=== PATIENT | female | born 1985 | race Caucasian/White ===

== ENCOUNTER 2020-02-16 22:10 | Emergency (ER) | payer OTHER, SELFPAY ==
[2020-02-16] VITALS (9 sets, daily range): BP systolic 108–129; BP diastolic 67–80; PULSE 75–82; RESP 12–22; TEMP 37.1; O2SAT 95–100; BMI 19.3
--- NOTE | 2020-02-16 22:22 | ED.ABDPAIN ---
HPI - Abdominal Pain General Chief Complaint: Abdominal Pain Stated Complaint: lwr right abdominal pain Time Seen by Provider: 02/16/20 22:15 Source: patient and family Mode of arrival: Ambulatory Limitations: no limitations History of Present Illness HPI narrative: 34-year-old female daily smoker without chronic medical problems presents with her in the chief complaint of severe right lower quadrant pain. Her pain is worse with motion or walking and improves with rest. She denies nausea, vomiting or diarrhea. She denies dysuria, frequency or urgency. She denies vaginal bleeding discharge and states her last period was 2 weeks ago. She denies any injury. She states the pain is constant and does not radiate. MD complaint: abdominal pain Onset (ago): hour(s) Pain Consistency: constant Location: RLQ Severity: moderate Quality: cramping and aching Radiation: none Relieving factors: rest Exacerbating factors: movement Associated symptoms: denies other symptoms Related Data Patient : No Previous Rx's Medication Instructions Recorded ketorolac 10 mg PO Q6H PRN #14 tab 02/17/20 ondansetron 4 mg PO TID-QID PRN #10 tab 02/17/20 Allergies Allergy/AdvReac Type Severity Reaction Status Date / Time latex [LATEX] Allergy Unknown skin Verified 02/16/20 22:59 irritation morphine AdvReac Mild ITCHING Verified 02/16/20 22:59 Review of Systems Constitutional Constitutional: Denies chills, Denies fatigue, Denies fever(s), Denies frequent falls, Denies lethargy and Denies weakness Eyes Eyes: Denies change in vision, Denies eye discharge, Denies irritation and Denies loss of vision ENT Ears, Nose, Mouth, and Throat: Denies change in voice, Denies dizziness, Denies neck pain, Denies sore throat and Denies throat swelling Cardiovascular Cardiovascular: Denies chest pain, Denies irregular heart rhythm, Denies lightheadedness, Denies palpitations, Denies dyspnea, Denies dyspnea on exertion and Denies orthopnea Respiratory Respiratory: Denies cough, Denies dyspnea, Denies dyspnea on exertion and Denies wheezing Gastrointestinal Gastrointestinal: Reports abdominal pain, Denies change in bowel habits, Denies diarrhea, Denies nausea and Denies vomiting Musculoskeletal Musculoskeletal: Denies neck pain and Denies numbness Integumentary/Breasts Skin/Breast: Denies pruritus, Denies erythema, Denies rash and Denies wounds Neurologic Neurologic: Denies behavioral changes, Denies confusion, Denies dizziness, Denies frequent falls, Denies loss of vision, Denies numbness and Denies weakness Psychiatric Psychiatric: Denies anxiety, Denies behavioral changes, Denies confusion, Denies depression, Denies homicidal ideation and Denies suicidal ideation Endocrine Endocrine: Denies fatigue, Denies flushing and Denies palpitations Hematologic/Lymphatic Hematologic/Lymphatic: Denies easy bruising Allergic/Immunologic Allergic/Immunologic: Denies urticaria, Denies throat swelling and Denies wheezing Patient History Social History Smoking Status: Current every day smoker Smoking Status: Current every day smoker alcohol intake frequency: 0-2 drinks per day Exam Narrative Exam Narrative: GENERAL: [34] year old patient appears stated age. Well-nourished, well-developed patient, in mild distress. HEAD: Atraumatic. Normocephalic. EYES: Pupils equal round and reactive. Extraocular motions intact. No scleral icterus. No injection or drainage. ENT: Nose without bleeding, purulent drainage. Throat without erythema, tonsillar hypertrophy or exudate. Airway patent. NECK: Trachea midline. Non tender CARDIOVASCULAR: Regular rate and rhythm without murmurs, gallops, or rubs. RESPIRATORY: Clear to auscultation. Breath sounds equal bilaterally. No wheezes, rales, or rhonchi. GASTROINTESTINAL: Abdomen soft, tender in the right lower quadrant, nondistended. Negative Rovsing's, heel tap EXTREMITIES: No edema or joint tenderness. BACK: Nontender without deformity or crepitance. No flank tenderness. NEURO: AOx3. SKIN: No rash or erythema of visible areas Initial Vital Signs Initial Vital Signs: Vital Signs Pulse Rate 78 02/16/20 22:33 Pulse Oximetry 99 02/16/20 22:33 Course Orders Ordered: ED Orders 02/16/20 22:46 US pelvic limited Stat 02/16/20 22:48 Basic Metabolic Panel Stat Complete Blood Count AUTO DIFF Stat Test Serum,Qual Stat 02/17/20 00:14 CT abdomen pelvis w con Stat Discontinued Medications Hydrocodone Bitart/Acetaminophen (Vicodin 5/325 Prepack) 1 bottle MISC SEEINSTR ONE Stop: 02/17/20 01:38 Last Admin: 02/17/20 01:47 Dose: 1 bottle Documented by: GLADIS Hydromorphone HCl (Dilaudid) 0.5 mg IV NOW ONE Stop: 02/16/20 22:42 Last Admin: 02/16/20 23:13 Dose: 0.5 mg Documented by: JAVIER Sodium Chloride (Normal Saline 0.9%) 1,000 mls @ 1,000 mls/hr IV BOLUS ONE Stop: 02/16/20 23:40 Last Infusion: 02/17/20 01:12 Dose: 0 mls/hr Documented by: Admin: 02/16/20 23:13 Dose: 1,000 mls/hr Documented by: JAVIER Ketorolac Tromethamine (Toradol) 15 mg IV NOW ONE Stop: 02/17/20 01:38 Last Admin: 02/17/20 01:47 Dose: 15 mg Documented by: GLADIS Ondansetron HCl (Zofran) 4 mg IV Q4HR PRN PRN Reason: Nausea And Vomiting Last Admin: 02/16/20 23:13 Dose: 4 mg Documented by: JAVIER Ondansetron HCl (Zofran Odt Prepack) 1 bottle MISC SEEINSTR ONE Stop: 02/17/20 01:38 Last Admin: 02/17/20 01:47 Dose: 1 bottle Documented by: GLADIS Vital Signs Vital signs: Vital Signs - 8 hr 02/16/20 22:33 02/16/20 22:36 02/16/20 22:45 Temperature Pulse Rate 78 79 77 Respiratory Rate 12 16 Blood Pressure 129/80 114/71 Pulse Oximetry 99 99 99 02/16/20 23:02 02/16/20 23:03 02/16/20 23:13 Temperature 98.7 F 98.7 F Pulse Rate 82 81 Respiratory Rate 16 22 Blood Pressure 114/71 Pulse Oximetry 100 98 02/16/20 23:17 02/16/20 23:30 02/16/20 23:45 Temperature Pulse Rate 77 75 77 Respiratory Rate 15 19 Blood Pressure 115/75 108/67 Pulse Oximetry 96 95 98 02/17/20 00:00 02/17/20 00:15 02/17/20 00:30 Temperature Pulse Rate 81 82 82 Respiratory Rate Blood Pressure 119/70 108/65 106/63 Pulse Oximetry 97 94 95 02/17/20 00:45 02/17/20 01:00 02/17/20 01:13 Temperature Pulse Rate 83 79 75 Respiratory Rate 18 18 19 Blood Pressure 111/67 115/71 Pulse Oximetry 97 94 96 02/17/20 01:15 02/17/20 01:30 02/17/20 01:45 Temperature Pulse Rate 75 73 85 Respiratory Rate 18 17 17 Blood Pressure 104/65 110/65 109/69 Pulse Oximetry 95 95 97 MDM - Abdominal Pain Lab Data Result diagrams: 02/16/20 22:48 02/16/20 22:48 Labs: Lab Results 02/16/20 02/16/20 02/16/20 Range/Units 22:48 22:48 22:48 WBC 9.0 (4.5-11.0) X10^3/uL RBC 4.36 (4.0-5.2) X10^6/uL Hgb 14.3 (12.0-16.0) g/dL Hct 41.7 (36-46) % MCV 95.5 (80-100) fL MCH 32.7 (26-34) PG MCHC 34.3 (30-36) % RDW 12.4 (11.6-14.8) % Plt Count 245 (150-400) X10^3/uL Neut % (Auto) 49.6 L (50-75) % Lymph % (Auto) 41.1 H (25-40) % [place] % (Auto) 5.9 (3-14) % Eos % (Auto) 2.7 (2-4) % Baso % (Auto) 0.7 (0-2) % Neut # (Auto) 4500 (9367-7873) /uL Lymph # (Auto) 3700 (5806-6630) /uL [place] # (Auto) 500 (0-900) /uL Eos # (Auto) 200 (0-450) /uL Baso # (Auto) 100 (0-100) /uL Sodium 135 L (137-145) mmol/L Potassium 4.3 (3.4-5.1) mmol/L Chloride 102 (98-107) mmol/L Carbon Dioxide 27 (22-32) mmol/L BUN 10 (7-17) mg/dL Creatinine 0.72 (0.52-1.04) mg/dL Estimated GFR > 60.0 (>60) mL/min BUN/Creatinine Ratio 13.9 (6-22) Glucose 93 (70-100) mg/dL Calcium 9.8 (8.4-10.2) mg/dL Serum , Qual Negative (Negative) Point of care testing: Point of Care Testing Test Results Negative Urine Dip Bedside Urine Glucose Negative Bedside Urine Bilirubin - Negative Bedside Urine Ketone - Negative Urine Specific [place] 1.005 Bedside Urine Occult Blood - Negative Bedside Urine pH 7.0 Bedside Urine Protein - Negative Bedside Urine Urobilinogen - Negative Bedside Urine Nitrite - Negative Bedside Urine Leukocytes - Negative Esterase Imaging Data US - abdomen: Radiologist's Impression: R ovarian cyst. No torsion CT scan - abdomen/pelvis: Radiologist's Impression: NO acute findings Discharge Plan Departure Patient Disposition: Home Clinical Impression: Ovarian cyst Qualifiers: Laterality: right Qualified Code(s): N83.201 - Unspecified ovarian cyst, right side Discharge Date/Time: 02/17/20 02:00 Instructions: DI for Ovarian Cyst Activity Restrictions/Additional Instructions: *You have been diagnosed with [right lower quadrant pain, likely from ovarian cyst] *What to do: *Take medications as directed *Follow up with your primary care provider in 2-3 days, call for an appointment. Let them know you were seen in the Emergency Department and that we ask that you be seen in follow up *Return to ER if you should have any new, worsening or concerning symptoms Prescriptions: New ketorolac 10 mg tablet 10 mg PO Q6H PRN (Reason: pain) Qty: 14 RF: 0 ondansetron 4 mg tablet,disintegrating 4 mg PO TID-QID PRN (Reason: nausea and vomiting) Qty: 10 RF: 0
--- NOTE | 2020-02-16 22:46 | DI.US.S_ITS ---
PROCEDURE: US PELVIC LIMITED INDICATIONS: SEVERE RLQ PAIN, POSSIBLE TORSION TECHNIQUE: Real-time transabdominal scanning was performed of the pelvic organs, with image documentation. COMPARISON: None. FINDINGS: Uterus: Uterus is normal in size at 10.7 x 4.9 x 5.6 cm. Endometrium measures 15 mm in combined thickness. Ovaries: Right ovary measures 4.4 x 2.7 x 1.9 centimeters. Two small cysts noted in the right ovary measuring 1.1 centimeter and 0.9 centimeters in diameter. Left ovary measures 2.6 x 1.6 x 1.9 centimeters. Left ovary is sonographically normal. Doppler evaluation demonstrates normal arterial and venous flow in the ovaries bilaterally. Other: No free pelvic fluid. Limited scanning through the kidneys shows no hydronephrosis. IMPRESSION: No evidence of ovarian torsion. Please note ultrasound cannot exclude intermittent torsion. Dictated by: Yelitza Ruiz MD, PhD on 02/17/2020 at 7:27 Approved by: Yleitza Ruiz MD, PhD on 02/17/2020 at 7:31
[2020-02-16 22:59] LABS: Add Manual Diff / Slide Review NO; Basophils Absolute Auto 100 /uL (0-100); Basophils Percent Auto 0.7 % (0-2); Eosinophils Absolute Auto 200 /uL (0-450); Eosinophils Percent Auto 2.7 % (2-4); Hematocrit 41.7 % (36-46); Hemoglobin 14.3 g/dL (12.0-16.0); Lymphocytes Absolute Auto 3700 /uL (1100-4500); Lymphocytes Percent Auto 41.1 % (25-40); Mean Corpuscular HGB Conc 34.3 % (30-36); Mean Corpuscular Hemoglobin 32.7 PG (26-34); Mean Corpuscular Volume 95.5 fL (80-100); Monocytes Absolute Auto 500 /uL (0-900); Monocytes Percent Auto 5.9 % (3-14); Neutrophils Absolute Auto 4500 /uL (1500-7000); Neutrophils Percent Auto 49.6 % (50-75); Platelet Count 245 X10^3/uL (150-400); Red Blood Cell Count 4.36 X10^6/uL (4.0-5.2); Red Cell Distribution Width 12.4 % (11.6-14.8)
[2020-02-16 23:13] LABS: BUN Creatinine Ratio 13.9 (6-22); Blood Urea Nitrogen 10 mg/dL (7-17); Calcium 9.8 mg/dL (8.4-10.2); Carbon Dioxide 27 mmol/L (22-32); Chloride 102 mmol/L (98-107); Estimated Glomerular Filt Rate > 60.0 mL/min (>60); Glucose 93 mg/dL (70-100); HEMOLYSIS 32 (0-50); Potassium 4.3 mmol/L (3.4-5.1); Sodium 135 mmol/L (137-145)
[2020-02-16] MEDS: ONDANSETRON 4 MG/2 ML INJ IV (23:13)
[2020-02-16] MEDS: SODIUM CHLORIDE 0.9% 1,000 ML 1000 ML IV (23:13)
[2020-02-16] MEDS: HYDROMORPHONE 0.5 MG INJ IV (23:13)
[2020-02-16 23:22] LABS: Pregnancy Test Serum,Qual Negative (Negative)
[2020-02-17] VITALS (9 sets, daily range): BP systolic 104–119; BP diastolic 63–71; PULSE 73–85; RESP 17–19; O2SAT 94–97
--- NOTE | 2020-02-17 00:14 | DI.CT.S_ITS ---
PROCEDURE: CT ABDOMEN PELVIS W CON INDICATIONS: severe Right lower quadrant pain TECHNIQUE: After the administration of intravenous contrast, 5 mm thick sections acquired from the diaphragm to the symphysis. 5 mm coronal and sagittal reformats were acquired. For radiation dose reduction, the following was used: automated exposure control, adjustment of mA and/or kV according to patient size. COMPARISON: None. FINDINGS: Image quality: Excellent. ABDOMEN: Lung bases: Lung bases are clear. Heart size is normal. Solid organs: Liver is normal in size and enhancement. Gallbladder is within normal limits. Biliary system is non dilated. Pancreas enhances normally. Spleen is normal in size and enhancement. No adrenal nodules. Kidneys demonstrate normal size and enhancement, without hydronephrosis. Peritoneum and bowel: Bowel loops demonstrate normal wall thickness and caliber. No free fluid or air. Appendix is visualized and is within normal limits. Mild fecal stasis in the colon is seen. Nodes and vessels: No retroperitoneal or mesenteric adenopathy by size criteria. Aorta and inferior vena cava are normal in size. Miscellaneous: No ventral hernias. PELVIS: Genitourinary: Bladder wall thickness is normal. Miscellaneous: No inguinal hernias or adenopathy. Fluid is noted within endometrium. No gross abnormality is seen in bilateral adnexa. Bones: No suspicious bony lesions. No vertebral body compression fractures. IMPRESSION: 1. Normal appendix. No bowel obstruction. No abnormal bowel wall thickening. No free fluid or free air. 2. No renal stone or hydronephrosis. No discrepancies from preliminary report. Dictated by: Rolf Mary M.D. on 02/17/2020 at 8:28 Approved by: Rolf Mary M.D. on 02/17/2020 at 8:30
[2020-02-17] MEDS: HYDROCODONE/ACET 5/325 PREPACK 1 BOTTLE MISC (01:47)
[2020-02-17] MEDS: ONDANSETRON 4 MG ODT PREPACK 1 BOTTLE MISC (01:47)
[2020-02-17] MEDS: KETOROLAC 60 MG/2 ML VIAL 15 MG IV (01:47)
== END 2020-02-17 02:00 | disposition home or self-care (01) ==
PROVIDERS: Emergency Provider Emergency Medicine
DX: N83.201 Unspecified ovarian cyst, right side (principal)
CPT/HCPCS: 36415; 74177; 76830; 76857; 80048; 81003; 81025; 84703; 85025; 96361; 96374; 96375; 99284; J1170; J1885; J2405; Q9967

== ENCOUNTER 2022-10-08 16:23 | Emergency (ER) | payer OTHER, SELFPAY ==
[2022-10-08 16:27] VITALS: BP 130/83; PULSE 94; RESP 18; TEMP 36.6; O2SAT 98; BMI 18.8
--- NOTE | 2022-10-08 16:32 | DI.RAD.S_ITS ---
PROCEDURE: XR HAND RT MIN 3V INDICATIONS: smashed hand/R middle finger between two bricks TECHNIQUE: 3 views of the hand(s) acquired. COMPARISON: None. FINDINGS: Bones: There is a nondisplaced fracture at the base of the 3rd distal phalanx. Carpal bones are normally aligned. No suspicious bony lesions. Soft tissues: No suspicious soft tissue calcifications. IMPRESSION: Nondisplaced 3rd distal phalangeal base fracture. Dictated by: Castro Bowling M.D. on 10/08/2022 at 16:57 Approved by: Castro Bowling M.D. on 10/08/2022 at 16:58
--- NOTE | 2022-10-08 17:06 | ED.UPPEXIN ---
HPI - Extremity Injury (Upper) <YAAKOV Mcdaniel - Last Filed: 10/08/22 18:51> General Chief Complaint: Extremity Injury, Upper Stated Complaint: rt middle ringer injury Time Seen by Provider: 10/08/22 16:59 Source: patient Mode of arrival: Ambulatory History of Present Illness HPI narrative: This is a 36-year-old female presents to the emergency department complaining of a injury to her right 3rd digit that happened just prior to arrival. She states that it was smashed between 2 bricks proximally 8-10 lb. She does not remember when her last tetanus was, denies any numbness or tingling, she has artificial nails, states that she is allergic to latex, morphine. Denies range of motion changes or deficit. She is able to flex and extend her finger without difficulty. Related Data Previous Rx's Medication Instructions Recorded ketorolac 10 mg tablet 10 mg PO Q6H PRN pain #14 tabs 02/17/20 ondansetron 4 mg disintegrating 4 mg PO TID-QID PRN nausea and 02/17/20 tablet vomiting #10 tabs Allergies Allergy/AdvReac Type Severity Reaction Status Date / Time latex [LATEX] Allergy Unknown skin Verified 02/16/20 22:59 irritation morphine AdvReac Mild ITCHING Verified 02/16/20 22:59 Review of Systems <YAAKOV Mcdaniel - Last Filed: 10/08/22 18:51> Review of Systems ROS Unobtainable: All systems reviewed & are unremarkable except as noted in HPI and below Patient History <YAAKOV Mcdaniel - Last Filed: 10/08/22 18:51> Social History Smoking Status: Current every day smoker Smoking Status: Current every day smoker tobacco type: cigarettes alcohol intake frequency: 0-2 drinks per day Substance Use Type: marijuana Exam <YAAKOV Mcdaniel - Last Filed: 10/08/22 18:51> Narrative Exam Narrative: Reviewed vitals signs and nursing notes. General: cooperative, in no acute distress, well groomed MSK: moves all extremities, neurovascularly intact, no weakness, normal tone Skin: brisk capillary refill, without rash, abrasion/blunt injury to the lateral aspect of the 3rd digit right hand fingernail. Removing nail Surinamese with nail Surinamese remover and will perform digital block to remove the artificial nail to evaluate the nail bed, brisk cap refill and no sensation deficit at this time, unable to evaluate for subungual hematoma until nail Surinamese is removed. Update: Patient's sample shows removed, there is no evidence of subungual hematoma or nail bed injury or laceration related to the nail bed. She has ecchymosis proximal to the D IP, tenderness over this area and some tenderness over the D IP joint. Normal flexion extension of her finger and isolated it at each joint. No vascular or tendon injury Initial Vital Signs Initial Vital Signs: Vital Signs Temperature 97.8 F 10/08/22 16:27 Pulse Rate 94 H 10/08/22 16:27 Respiratory Rate 18 10/08/22 16:27 Blood Pressure 130/83 10/08/22 16:27 Pulse Oximetry 98 10/08/22 16:27 Oxygen Delivery Method Room Air 10/08/22 16:27 <Mary Ann Christy DO - Last Filed: 10/10/22 14:17> Initial Vital Signs Initial Vital Signs: Vital Signs Temperature 97.8 F 10/08/22 16:27 Pulse Rate 94 H 10/08/22 16:27 Respiratory Rate 18 10/08/22 16:27 Blood Pressure 130/83 10/08/22 16:27 Pulse Oximetry 98 10/08/22 16:27 Oxygen Delivery Method Room Air 10/08/22 16:27 Procedures <YAAKOV Mcdaniel - Last Filed: 10/08/22 18:51> Orthopedic Splinting/Casting Injury #1: Side: right Upper Extremity Injury Location: finger Upper Extremity Immobilizer: aluminum form splint and finger (other) Post splinting neuro exam: intact and no change Post splinting vascular exam: no change Placed by: Provider Additional Comments: Bacitracin and Telfa applied, finger splinted in extension with a metal finger splint, this was wrapped with Coban and patient tolerated well, patient remains having a brisk cap refill without significant tenderness, weakness, or sensation changes Course <YAAKOV Mcdaniel - Last Filed: 10/08/22 18:51> Orders Ordered: Discontinued Medications Bacitracin (Bacitracin Oint 0.9 Gm Pckt) 1 applic TOP NOW ONE Stop: 10/08/22 17:01 Last Admin: 10/08/22 17:17 Dose: 1 applic Documented By: CTS Diphtheria/Tetanus/Acell Pertussis (Tet,Diph,Pertuss(Acell),Vac/Pf 0.5 Ml Syringe) 0.5 ml IM .ONCE ONE Stop: 10/08/22 17:01 Last Admin: 10/08/22 17:17 Dose: 0.5 ml Documented By: CTS Ketorolac Tromethamine (Ketorolac 10 Mg Tablet) 10 mg PO NOW ONE Stop: 10/08/22 17:01 Last Admin: 10/08/22 17:17 Dose: 10 mg Documented By: CTS Lidocaine HCl (Lidocaine 2% Inj Sdv 5ml) 5 ml INJ INTRA-OP ONE Stop: 10/08/22 17:06 Last Admin: 10/08/22 18:04 Dose: Not Given Documented By: CTS Vital Signs Vital signs: Vital Signs - 8 hr 10/08/22 16:27 Temperature 97.8 F Pulse Rate 94 H Respiratory Rate 18 Blood Pressure 130/83 Pulse Oximetry 98 Oxygen Delivery Method Room Air <Mary Ann Christy, - Last Filed: 10/10/22 14:17> Orders Ordered: Discontinued Medications Bacitracin (Bacitracin Oint 0.9 Gm Pckt) 1 applic TOP NOW ONE Stop: 10/08/22 17:01 Last Admin: 10/08/22 17:17 Dose: 1 applic Documented By: CTS Diphtheria/Tetanus/Acell Pertussis (Tet,Diph,Pertuss(Acell),Vac/Pf 0.5 Ml Syringe) 0.5 ml IM .ONCE ONE Stop: 10/08/22 17:01 Last Admin: 10/08/22 17:17 Dose: 0.5 ml Documented By: CTS Ketorolac Tromethamine (Ketorolac 10 Mg Tablet) 10 mg PO NOW ONE Stop: 10/08/22 17:01 Last Admin: 10/08/22 17:17 Dose: 10 mg Documented By: CTS Lidocaine HCl (Lidocaine 2% Inj Sdv 5ml) 5 ml INJ INTRA-OP ONE Stop: 10/08/22 17:06 Last Admin: 10/08/22 18:04 Dose: Not Given Documented By: CTS Vital Signs Vital signs: Vital Signs - 8 hr 10/08/22 16:27 Temperature 97.8 F Pulse Rate 94 H Respiratory Rate 18 Blood Pressure 130/83 Pulse Oximetry 98 Oxygen Delivery Method Room Air [facility] - Extremity Injury (Upper) <YAAKOV Mcdaniel - Last Filed: 10/08/22 18:51> Imaging Data Extremity x-ray #1: Radiologist's Impression: PROCEDURE:? XR HAND RT MIN 3V ? INDICATIONS:? smashed hand/R middle finger between two bricks ? TECHNIQUE:? 3 views of the hand(s) acquired.? ? COMPARISON:? None. ? FINDINGS:? ? Bones:? There is a nondisplaced fracture at the base of the 3rd distal phalanx.? Carpal bones are normally aligned.? No suspicious bony lesions.? ? Soft tissues:? No suspicious soft tissue calcifications.? ? ? IMPRESSION:? Nondisplaced 3rd distal phalangeal base fracture. ? ? Dictated by: Castro Bowling M.D. on 10/08/2022 at 16:57 ? ? Approved by: Castro Bowling M.D. on 10/08/2022 at 16:58 ? [facility] Narrative Medical decision making narrative: Chief Complaint: Finger pain and injury Independent historian: Patient Differential diagnoses include but are not limited to: Subungual hematoma, nail bed laceration, fracture, tendon injury, vascular injury, compartment syndrome, laceration/abrasion/contusion I have independently reviewed the patient's vital signs and nursing notes as well as prior records if available. Pertinent Imaging reviewed: X-ray of the right hand 3rd digit shows nondisplaced 3rd distal phalangeal base fracture. Patient's tetanus was updated today, pain control with Toradol was provided, nail Surinamese was removed showing no nailbed injury, subungual hematoma, or injury suspected involved with the fingernail. Finger was splinted in extension, wound was cleansed with normal saline, covered with bacitracin, there is no bleeding, no suture repair was indicated. Encourage patient to return emergency department for new or worsening symptoms, treat her pain with Tylenol and ibuprofen, return for pain out proportion, range of motion changes or numbness and tingling. Social considerations that may affect disposition: none Questions are addressed and there is agreement with the plan and for follow-up. Patient is appropriate for outpatient management. MIPS: This encounter doesn't have any diagnosis' associated with MIPS criteria. Discharge Plan Departure Patient Disposition: Home Clinical Impression: Avulsion fracture of distal phalanx of finger Qualifiers: Encounter type: initial encounter Fracture type: closed Qualified Code(s): S62.639A - Displaced fracture of distal phalanx of unspecified finger, initial encounter for closed fracture Instructions: DI for Finger Fracture Activity Restrictions/Additional Instructions: *You have been diagnosed with a fracture of the fingertip bone in your 3rd finger called a tuft. Please immobilize this distal joint with a Band-Aid at least for the next few weeks to prevent worsening injury. There does not appear to be any fingernail or nail bed injury which is good news. Please come back if you numbness, tingling, worsening pain or other change. Please follow-up with your primary care provider as needed, use ibuprofen 600 mg with 650 mg Tylenol every 6 hours, keep this elevated as much as possible, ice may be helpful but the pain should start to subside. If it is worsening, evaluate the fingernail to see if there is blood underneath, come back in for that or treated at home as we discussed. Please apply topical antibiotic ointment and keep the wound covered with at least a Band-Aid. *What to do: *Please continue to take your regular medications as directed. [ ] New medication prescriptions sent to your pharmacy: [ ] [ ] New medication written as a paper prescription [x ] No new medications given *Please follow up with your primary care provider in 2-3 days, call for an appointment. Let them know you were seen in the Emergency Department and that we asked that you be seen for follow-up. We will electronically transmit a record of today's note if your PCP is in our system *If you do not have a primary care provider please contact [phone] to establish care with one of the [facility] primary care providers. *Return to Emergency Department if you should have any new, worsening, or concerning symptoms, such as [fever greater than 101F, chills, worsening pain, persistent vomiting or other bothersome symptoms]. Prescriptions: No Action ketorolac 10 mg tablet 10 mg PO Q6H PRN (Reason: pain) Qty: 14 0RF ondansetron 4 mg tablet,disintegrating 4 mg PO TID-QID PRN (Reason: nausea and vomiting) Qty: 10 0RF Referrals: Etelvina Junior ARNP [Primary Care Provider] - Stand Alone Forms: Patient Portal/API <Mary Ann Christy DO - Last Filed: 10/10/22 14:17> Cosign ED Attending Cosignature Attestation: I was immediately available in the department for consultation. Documentation has been reviewed.
[2022-10-08] MEDS: BACITRACIN OINT 0.9 GM PCKT 1 APPLIC TOP (17:17)
[2022-10-08] MEDS: KETOROLAC 10 MG TABLET PO (17:17)
[2022-10-08] MEDS: TET,DIPH,PERTUSS(ACELL),VAC/PF 0.5 ML SYRINGE IM (17:17)
== END 2022-10-08 18:10 | disposition home or self-care (01) ==
PROVIDERS: Emergency Provider Nurse Practitioner Critical Care Medicine; PCP Nurse Practitioner Family
DX: S62.632A Displaced fracture of distal phalanx of right middle finger, initial encounter for closed fracture (principal); W23.0XXA Caught, crushed, jammed, or pinched between moving objects, initial encounter; Z23 Encounter for immunization
CPT/HCPCS: 29130; 73130; 90471; 99283; 99284; 90715

== ENCOUNTER 2023-09-26 11:00 | Emergency (ER) | payer OTHER, SELFPAY ==
[2023-09-26 11:09] VITALS: BP 122/64; PULSE 89; RESP 18; O2SAT 99
--- NOTE | 2023-09-26 11:14 | ED_ITS ---
HPI - Fever <Diana De La Torre PA-C - Last Filed: 09/26/23 16:03> General Chief Complaint: Fever Stated Complaint: ryan catalanney infection, fever/pain/nausea Time Seen by Provider: 09/26/23 11:04 History of Present Illness HPI Narrative: Patient is a 37-year-old female presenting for evaluation of right flank pain beginning 3 days ago. She states that yesterday it radiated around to her right anterior flank. She presented to the emergency department this morning because the pain seems to be getting worse and she noticed burning with urination this morning as well as a fever of 101 F. She states that her symptoms of pain are improved with Motrin and Tylenol. 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 She notes the pain seems to have worsened over the last 3 days moving remaining in her right posterior flank and starting to radiate around to her right abdomen. She denies any previous abdominal surgery. She states she is not taking any control, but her has had a vasectomy 11 years ago. She reports that she can not remember having had a UTI in the past nor kidney stones. She endorses some nausea this morning but denies vomiting. She states that this time it is not significantly bothering her. She describes the pain as dull and with anterior pressure on her stomach, notes that it seems to ?poke into her back?. She reports her last menstrual period began September 11. She reports regular bowel movements with her most recent 1 occurring yesterday. She denies diarrhea, nasal congestion cough abnormal vaginal discharge or bleeding. She reports daily smoking. She reports chronic condition of depression and states she takes medication to treat depression. She reports she last took 200 mg of Motrin at 9a and 500 mg of Tylenol at 9a. Related Data Previous Rx's Medication Instructions Recorded ketorolac 10 mg tablet 10 mg PO Q6H PRN pain #14 tabs 02/17/20 ondansetron 4 mg disintegrating 4 mg PO TID-QID PRN nausea and 02/17/20 tablet vomiting #10 tabs cephalexin 500 mg capsule 500 mg PO BID 5 days #10 caps 09/26/23 Allergies Allergy/AdvReac Type Severity Reaction Status Date / Time latex [LATEX] Allergy Unknown skin Verified 09/26/23 11:49 irritation morphine AdvReac Mild ITCHING Verified 09/26/23 11:49 Review of Systems <Diana De La Torre PA-C - Last Filed: 09/26/23 16:03> Review of Systems Narrative: see HPI Patient History <Diana De La Torre PA-C - Last Filed: 09/26/23 16:03> Social History Smoking Status: Current every day smoker Smoking Status: Current every day smoker tobacco type: cigarettes alcohol intake frequency: 0-2 drinks per day Substance Use Type: marijuana Exam <Diana De La Torre PA-C - Last Filed: 09/26/23 16:03> Narrative Exam Narrative: GENERAL: 37 year old patient appears stated age. Well-developed patient, in no acute distress. HEAD: Atraumatic. Normocephalic. EYES: Pupils equal round CARDIOVASCULAR: Regular rate and rhythm without murmurs, gallops, or rubs. RESPIRATORY: Clear to auscultation. Breath sounds equal bilaterally. No wheezes, rales, or rhonchi. GASTROINTESTINAL: Bowel sounds present x4, tympanic to percussion in all 4 quadrants, Abdomen soft, nondistended. Patient has tenderness in right side mid-abdomen, tender to palpation of suprapubic area, no significant tenderness with the right lower quadrant, no tenderness with obturator sign, no worsening tenderness with Sabillon's, no hepatosplenomegaly noted. Positive right-sided CVA tenderness present BACK: Right flank tenderness present NEURO: AOx3. SKIN: No rash or erythema of visible areas Initial Vital Signs Initial Vital Signs: Vital Signs Pulse Rate 89 09/26/23 11:09 Respiratory Rate 18 09/26/23 11:09 Blood Pressure 122/64 09/26/23 11:09 Pulse Oximetry 99 09/26/23 11:09 Oxygen Delivery Method Room Air 09/26/23 11:09 <Jada Morillo MD - Last Filed: 09/26/23 19:07> Initial Vital Signs Initial Vital Signs: Vital Signs Pulse Rate 89 09/26/23 11:09 Respiratory Rate 18 09/26/23 11:09 Blood Pressure 122/64 09/26/23 11:09 Pulse Oximetry 99 09/26/23 11:09 Oxygen Delivery Method Room Air 09/26/23 11:09 Course <Diana De La Torre PA-C - Last Filed: 09/26/23 16:03> Orders Ordered: ED Orders 09/26/23 11:51 CT kidney ureter bladder (KUB) Stat 09/26/23 12:05 CBC Auto Diff [Complete Blood Count AUTO DIFF] Stat CMP [Comprehensive Metabolic Panel] Stat Lipase Stat Discontinued Medications Acetaminophen (Acetaminophen 325 Mg Tablet) 650 mg PO NOW ONE Stop: 09/26/23 13:01 Last Admin: 09/26/23 12:56 Dose: 650 mg Documented By: KARIN Sodium Chloride (Normal Saline 0.9%) 1,000 mls @ 1,000 mls/hr IV BOLUS ONE Stop: 09/26/23 12:58 Last Infusion: 09/26/23 13:11 Dose: Infused Documented By: Admin: 09/26/23 12:10 Dose: 1,000 mls/hr Documented By: KARIN Sodium Chloride (Normal Saline 0.9%) 500 mls @ 1,000 mls/hr IV BOLUS ONE Stop: 09/26/23 12:28 Last Admin: 09/26/23 12:10 Dose: Not Given Documented By: RB Ibuprofen (Ibuprofen 400 Mg Tablet) 400 mg PO NOW ONE Stop: 09/26/23 13:01 Ketorolac Tromethamine (Ketorolac 30 Mg/Ml Vial) 15 mg IV NOW ONE Stop: 09/26/23 13:01 Last Admin: 09/26/23 12:57 Dose: 15 mg Documented By: KARIN Ondansetron HCl (Ondansetron 4 Mg Odt) 4 mg SL NOW PRN PRN Reason: Nausea And Vomiting Ondansetron HCl (Ondansetron 4 Mg/2 Ml Inj) 4 mg IV NOW PRN PRN Reason: Nausea And Vomiting Last Admin: 09/26/23 12:56 Dose: 4 mg Documented By: KARIN Vital Signs Vital signs: Vital Signs - 8 hr 09/26/23 11:09 09/26/23 11:09 09/26/23 11:16 Temperature 98.4 F Pulse Rate 89 92 H Respiratory Rate 18 18 Blood Pressure 122/64 122/64 Pulse Oximetry 99 99 Oxygen Delivery Method Room Air Room Air 09/26/23 12:05 09/26/23 12:05 09/26/23 12:29 Temperature Pulse Rate 85 87 Respiratory Rate 18 20 Blood Pressure 119/58 L Pulse Oximetry 96 98 Oxygen Delivery Method 09/26/23 12:29 09/26/23 12:30 09/26/23 12:30 Temperature Pulse Rate 81 Respiratory Rate Blood Pressure 123/74 106/66 Pulse Oximetry 99 Oxygen Delivery Method Room Air <Jada Morillo MD - Last Filed: 09/26/23 19:07> Orders Ordered: ED Orders 09/26/23 11:51 CT kidney ureter bladder (KUB) Stat 09/26/23 12:05 CBC Auto Diff [Complete Blood Count AUTO DIFF] Stat CMP [Comprehensive Metabolic Panel] Stat Lipase Stat Discontinued Medications Acetaminophen (Acetaminophen 325 Mg Tablet) 650 mg PO NOW ONE Stop: 09/26/23 13:01 Last Admin: 09/26/23 12:56 Dose: 650 mg Documented By: KARIN Sodium Chloride (Normal Saline 0.9%) 1,000 mls @ 1,000 mls/hr IV BOLUS ONE Stop: 09/26/23 12:58 Last Infusion: 09/26/23 13:11 Dose: Infused Documented By: Admin: 09/26/23 12:10 Dose: 1,000 mls/hr Documented By: KARIN Sodium Chloride (Normal Saline 0.9%) 500 mls @ 1,000 mls/hr IV BOLUS ONE Stop: 09/26/23 12:28 Last Admin: 09/26/23 12:10 Dose: Not Given Documented By: SARA Ibuprofen (Ibuprofen 400 Mg Tablet) 400 mg PO NOW ONE Stop: 09/26/23 13:01 Ketorolac Tromethamine (Ketorolac 30 Mg/Ml Vial) 15 mg IV NOW ONE Stop: 09/26/23 13:01 Last Admin: 09/26/23 12:57 Dose: 15 mg Documented By: KARIN Ondansetron HCl (Ondansetron 4 Mg Odt) 4 mg SL NOW PRN PRN Reason: Nausea And Vomiting Ondansetron HCl (Ondansetron 4 Mg/2 Ml Inj) 4 mg IV NOW PRN PRN Reason: Nausea And Vomiting Last Admin: 09/26/23 12:56 Dose: 4 mg Documented By: KARIN Vital Signs Vital signs: Vital Signs - 8 hr 09/26/23 11:09 09/26/23 11:09 09/26/23 11:16 Temperature 98.4 F Pulse Rate 89 92 H Respiratory Rate 18 18 Blood Pressure 122/64 122/64 Pulse Oximetry 99 99 Oxygen Delivery Method Room Air Room Air 09/26/23 12:05 09/26/23 12:05 09/26/23 12:29 Temperature Pulse Rate 85 87 Respiratory Rate 18 20 Blood Pressure 119/58 L Pulse Oximetry 96 98 Oxygen Delivery Method 09/26/23 12:29 09/26/23 12:30 09/26/23 12:30 Temperature Pulse Rate 81 Respiratory Rate Blood Pressure 123/74 106/66 Pulse Oximetry 99 Oxygen Delivery Method Room Air MDM - Fever <Diana De La Torre PA-C - Last Filed: 09/26/23 16:03> Lab Data 09/26/23 12:05 09/26/23 12:05 Labs: Lab Results 09/26/23 Range/Units 12:05 WBC 8.9 (4.5-11.0) X10^3/uL RBC 4.06 (4.0-5.2) X10^6/uL Hgb 13.3 (12.0-16.0) g/dL Hct 39.2 (36-46) % MCV 96.6 (80-100) fL MCH 32.8 (26-34) PG MCHC 34.0 (30-36) % RDW 13.8 (11.6-14.8) % Plt Count 246 (150-400) X10^3/uL Neut % (Auto) 75.0 (50-75) % Lymph % (Auto) 15.0 L (25-40) % [place] % (Auto) 9.0 (3-14) % Eos % (Auto) 0.6 L (2-4) % Baso % (Auto) 0.4 (0-2) % Neut # (Auto) 6600 (0361-7956) /uL Lymph # (Auto) 1300 (8489-7582) /uL [place] # (Auto) 800 (0-900) /uL Eos # (Auto) 0 (0-450) /uL Baso # (Auto) 0 (0-100) /uL Sodium 138 (137-145) mmol/L Potassium 4.1 (3.4-5.1) mmol/L Chloride 103 (98-107) mmol/L Carbon Dioxide 27 (22-32) mmol/L BUN 5 L (7-17) mg/dL Creatinine 0.53 (0.52-1.04) mg/dL Estimated GFR > 60 (>60) mL/min BUN/Creatinine Ratio 9.4 (6-22) Glucose 72 (70-100) mg/dL Calcium 9.3 (8.4-10.2) mg/dL Total Bilirubin 0.7 (0.2-1.3) mg/dL AST 22 (14-36) IU/L ALT 17 (<35) IU/L Alkaline Phosphatase 54 (38-126) U/L Total Protein 7.4 (6.3-8.2) g/dL Albumin 4.4 (3.5-5.0) g/dL Globulin 3.0 (1.7-4.1) g/dL Albumin/Globulin Ratio 1.5 (1.0-2.8) Lipase 55 (23-300) U/L Point of Care Testing Test Results Negative Urine Dip Bedside Urine Glucose Negative Bedside Urine Bilirubin - Negative Bedside Urine Ketone - Negative Urine Specific [place] 1.010 Bedside Urine Occult Blood - Negative Bedside Urine pH 6.0 Bedside Urine Protein - Negative Bedside Urine Urobilinogen - Negative Bedside Urine Nitrite - Negative Bedside Urine Leukocytes +/- 15 Esterase MDM Narrative Medical decision making narrative: Patient is a 37-year-old female presenting for evaluation of 3 days of right back pain with radiation to right flank. On exam, she has tenderness right side mid-abdomen with no increased tenderness with Sabillon sign, and some suprapubic tenderness. test is negative. UA shows presence of some leukocyte-esterase, negative for nitrites and blood. We will proceed with CBC, CMP and lipase. Low suspicion for sepsis as patient's blood pressure and heart rate are within appropriate range. Patient also received 1 L of normal saline, Zofran, 15 mg Toradol, 650 mg of Tylenol at 1pm. CBC, CMP and lipase were all within normal limits. GFR is appropriate. CT scan demonstrated no abnormalities around patient's appendix nor surrounding inflammation noted, no abnormalities around adnexa nor an uterus, no stone was noted except for 2 small 1mm bilateral stones present within patient's bilateral kidneys. A phlebolith was present in the right side. Discussed case with Dr. Morillo. As lab work and imaging are reassuring, it is reasonable to treat for UTI due to patient's symptoms of urinary burning and small amount of leukocyte esterase. Discussed this with patient. Imaging did also indicate heavy stool burden. Discussed with patient this could be contributing to her discomfort, and I recommend that she increase fluids, fiber, take aids to help relieve her stool, and see if her urinary symptoms are improving. It would be reasonable if she wanted to wait a day or 2 to take the antibiotic for UTI to see if symptoms resolve after stool burden is relieved. After discussing with patient, she would prefer to go ahead and start antibiotic treatment. Discussed with patient that if her pain shoud continue, worsen or if she should develop severe nausea vomiting or other concerning signs or symptoms, she should return for further evaluation in the emergency department. Multiple etiologies for patient's symptoms considered including, but not limited to: Kidney stone, pyelonephritis, UTI, ovarian cyst, ectopic Prior Charts reviewed: No previous data present Patient's symptoms improved over duration of stay with above-stated therapies. Findings and discharge diagnosis discussed with patient/family followed by verbalization of understanding Return precautions discussed with patient/family whom verbalize understanding of diagnosis and plan <Jada Morillo MD - Last Filed: 09/26/23 19:07> Lab Data Labs: Lab Results 09/26/23 Range/Units 12:05 WBC 8.9 (4.5-11.0) X10^3/uL RBC 4.06 (4.0-5.2) X10^6/uL Hgb 13.3 (12.0-16.0) g/dL Hct 39.2 (36-46) % MCV 96.6 (80-100) fL MCH 32.8 (26-34) PG MCHC 34.0 (30-36) % RDW 13.8 (11.6-14.8) % Plt Count 246 (150-400) X10^3/uL Neut % (Auto) 75.0 (50-75) % Lymph % (Auto) 15.0 L (25-40) % [place] % (Auto) 9.0 (3-14) % Eos % (Auto) 0.6 L (2-4) % Baso % (Auto) 0.4 (0-2) % Neut # (Auto) 6600 (0182-2319) /uL Lymph # (Auto) 1300 (5783-9596) /uL [place] # (Auto) 800 (0-900) /uL Eos # (Auto) 0 (0-450) /uL Baso # (Auto) 0 (0-100) /uL Sodium 138 (137-145) mmol/L Potassium 4.1 (3.4-5.1) mmol/L Chloride 103 (98-107) mmol/L Carbon Dioxide 27 (22-32) mmol/L BUN 5 L (7-17) mg/dL Creatinine 0.53 (0.52-1.04) mg/dL Estimated GFR > 60 (>60) mL/min BUN/Creatinine Ratio 9.4 (6-22) Glucose 72 (70-100) mg/dL Calcium 9.3 (8.4-10.2) mg/dL Total Bilirubin 0.7 (0.2-1.3) mg/dL AST 22 (14-36) IU/L ALT 17 (<35) IU/L Alkaline Phosphatase 54 (38-126) U/L Total Protein 7.4 (6.3-8.2) g/dL Albumin 4.4 (3.5-5.0) g/dL Globulin 3.0 (1.7-4.1) g/dL Albumin/Globulin Ratio 1.5 (1.0-2.8) Lipase 55 (23-300) U/L Point of Care Testing Test Results Negative Urine Dip Bedside Urine Glucose Negative Bedside Urine Bilirubin - Negative Bedside Urine Ketone - Negative Urine Specific [place] 1.010 Bedside Urine Occult Blood - Negative Bedside Urine pH 6.0 Bedside Urine Protein - Negative Bedside Urine Urobilinogen - Negative Bedside Urine Nitrite - Negative Bedside Urine Leukocytes +/- 15 Esterase Discharge Plan Departure Patient Disposition: Home Clinical Impression: UTI (urinary tract infection) Qualifiers: Urinary tract infection type: acute cystitis Hematuria presence: without hematuria Qualified Code(s): N30.00 - Acute cystitis without hematuria Activity Restrictions/Additional Instructions: Thank you for coming in today for your care. Thankfully after evaluation with CT imaging, we did not find any evidence of abnormalities of your appendix or surrounding inflammation, no abnormalities noted to your uterus, and there were no ureteral stones. They did note a very small nonobstructing kidney stone in your left and right kidney which is likely not contributing to your pain today. Your imaging did demonstrate significant stool presence. Your urinalysis showed leukocyte esterase which could possibly indicate UTI. I recommend to increase fluids, and fiber to help ease stool burden as well as beginning antibiotic to preemptively treat for UTI. We did discuss that you could wait a day and see if your urination improves after reducing stool. If your urinary symptoms and pain should improve, you may not need to start the antibiotic. You are welcome to begin these antibiotics at any time if your urinary symptoms should worsen. We also discussed that if your pain, nausea should continue significantly worsen or if you should experience other concerning signs or symptoms, I recommend returning to the emergency department for further evaluation. [facility] [place]. Prescriptions: New cephalexin 500 mg capsule 500 mg PO BID 5 Days Qty: 10 0RF No Action ketorolac 10 mg tablet 10 mg PO Q6H PRN (Reason: pain) Qty: 14 0RF ondansetron 4 mg tablet,disintegrating 4 mg PO TID-QID PRN (Reason: nausea and vomiting) Qty: 10 0RF Referrals: Etelvina Junior ARNP [Primary Care Provider] - Stand Alone Forms: Patient Portal/API ED Sign-out <Jada Morillo MD - Last Filed: 09/26/23 19:07> Cosign ED Attending Cosignature Attestation: Shared a PC visit, physician attestation: Non [id number] I performed a substance stiff part of the MDM during the patient's emergency medicine visit. I personally made or approved that documented management plan and acknowledge it is risk of complications. CT scan results are reviewed with Diana De La Torre. Agree with current plan.
[2023-09-26 11:16] VITALS: BP 122/64; PULSE 92; RESP 18; TEMP 36.9; O2SAT 99; BMI 18.4
--- NOTE | 2023-09-26 11:51 | DI.CT.S_ITS ---
PROCEDURE: CT KIDNEY URETER BLADDER (KUB) INDICATIONS: Right flank pain TECHNIQUE: Axial sections were acquired from the lung bases to the pubic symphysis. Coronal and sagittal reformats were performed. For radiation dose reduction, the following was used: automated exposure control, adjustment of mA and/or kV according to patient size. COMPARISON: [facility], CT, CT ABDOMEN PELVIS W CON, 02/17/2020, 0:21. FINDINGS: Image quality: This study is limited by a paucity of intra-abdominal fat. Lower Chest: No significant findings. URINARY: Right Kidney: A 1 mm nonobstructing right-sided kidney stone is seen, as on series 4, image 21. No right-sided hydronephrosis is seen. Right Ureter: No hydroureter. There is a stable phlebolith seen within the right pelvis, as on series 2, image 73. Left Kidney: There is a 1 mm nonobstructing left-sided kidney stone, as on series 4, image 27. No hydronephrosis. Left Ureter: No hydroureter. Bladder: Normal wall thickness. No stones. ABDOMEN: Liver: No contour-deforming solid mass. Gallbladder: The gallbladder is decompressed. Biliary ducts: No biliary dilation. Pancreas: No ductal dilation. Spleen: Size is within normal limits. Adrenal Glands: No adrenal nodules. Stomach and Bowel: Normal colonic caliber, without significant wall thickening. A normal appendix is seen, as on series 4, image 15. No focal right lower quadrant inflammatory changes are seen. No dilated loops of small bowel are seen. Peritoneum: No abnormal intraperitoneal fluid. No free air. Ventral Wall: No hernia. Abdominal Nodes: No enlarged retroperitoneal or mesenteric lymph nodes. Vessels: Aorta and inferior vena cava are normal in size. PELVIS: Pelvic Organs: The uterus appears normal for age. No adnexal masses are seen. Pelvic Nodes: Unremarkable. Miscellaneous: No inguinal hernias are seen. Bones: Unremarkable. IMPRESSION: No ureteral stones, hydronephrosis, or hydroureter can be seen. Tiny nonobstructing bilateral kidney stones are seen. Normal appendix. Dictated by: Alex Nunez M.D. on 09/26/2023 at 11:43 Approved by: Alex Nunez M.D. on 09/26/2023 at 11:47
[2023-09-26 12:05] VITALS: BP 119/58; PULSE 85; RESP 18; RESP 20; O2SAT 96
[2023-09-26] MEDS: SODIUM CHLORIDE 0.9% 1,000 ML 1000 ML IV (12:10)
[2023-09-26 12:15] LABS: Add Manual Diff / Slide Review NO; Basophils Absolute Auto 0 /uL (0-100); Basophils Percent Auto 0.4 % (0-2); Eosinophils Absolute Auto 0 /uL (0-450); Eosinophils Percent Auto 0.6 % (2-4); Hematocrit 39.2 % (36-46); Hemoglobin 13.3 g/dL (12.0-16.0); Lymphocytes Absolute Auto 1300 /uL (1100-4500); Mean Corpuscular Hemoglobin 32.8 PG (26-34); Mean Corpuscular Volume 96.6 fL (80-100); Monocytes Absolute Auto 800 /uL (0-900); Neutrophils Absolute Auto 6600 /uL (1500-7000); Platelet Count 246 X10^3/uL (150-400); Red Blood Cell Count 4.06 X10^6/uL (4.0-5.2); Red Cell Distribution Width 13.8 % (11.6-14.8); White Blood Cell Count 8.9 X10^3/uL (4.5-11.0)
[2023-09-26 12:25] LABS: Alanine Aminotransferase 17 IU/L (<35); Albumin 4.4 g/dL (3.5-5.0); Albumin Globulin Ratio 1.5 (1.0-2.8); Alkaline Phosphatase 54 U/L (38-126); Aspartate Aminotransferase 22 IU/L (14-36); BUN Creatinine Ratio 9.4 (6-22); Bilirubin Total 0.7 mg/dL (0.2-1.3); Blood Urea Nitrogen 5 mg/dL (7-17); Calcium 9.3 mg/dL (8.4-10.2); Carbon Dioxide 27 mmol/L (22-32); Chloride 103 mmol/L (98-107); Estimated Glomerular Filt Rate > 60 mL/min (>60); Glucose 72 mg/dL (70-100); HEMOLYSIS < 15 (0-50); Lipase 55 U/L (23-300); Potassium 4.1 mmol/L (3.4-5.1); Sodium 138 mmol/L (137-145); Total Protein 7.4 g/dL (6.3-8.2)
[2023-09-26 12:29] VITALS: BP 123/74; PULSE 87; O2SAT 98
[2023-09-26 12:30] VITALS: BP 106/66; PULSE 81; O2SAT 99
[2023-09-26] MEDS: ACETAMINOPHEN 325 MG TABLET 650 MG PO (12:56)
[2023-09-26] MEDS: ONDANSETRON 4 MG/2 ML INJ IV (12:56)
[2023-09-26] MEDS: KETOROLAC 30 MG/ML VIAL 15 MG IV (12:57)
== END 2023-09-26 13:31 | disposition home or self-care (01) ==
PROVIDERS: Emergency Provider Physician Assistant; PCP Nurse Practitioner Family
DX: N30.00 Acute cystitis without hematuria (principal); R50.9 Fever, unspecified
CPT/HCPCS: 36415; 74176; 80053; 81003; 81025; 83690; 85025; 96361; 96374; 96375; 99284; J1885; J2405

== ENCOUNTER 2024-10-06 09:25 | Emergency (ER) | payer OTHER, SELFPAY ==
[2024-10-06 09:30] VITALS: BP 106/65; PULSE 98; RESP 14; TEMP 37.1; O2SAT 100; BMI 18.4
--- NOTE | 2024-10-06 09:45 | ED_ITS ---
HPI - General Adult General Chief complaint: Upper Respiratory Symptoms Stated complaint: Fever for 5 days Time Seen by Provider: 10/06/24 09:27 Source: patient Mode of arrival: Ambulatory History of Present Illness HPI narrative: Otherwise healthy 38-year-old woman presents with productive sputum and fevers for 4 days. She notes she had an upper respiratory infection approximately 4 weeks ago, 2 weeks ago had some dental work along with a course of amoxicillin. Still had some minor respiratory symptoms. 3-4 days after discontinuing the amoxicillin she noticed recurrent fevers, increasing cough in the last 48 hours has been a productive cough. There was no nausea, vomiting she is able to eat and drink, no cognitive dysfunction, no shortness a breath, no palpitations or lower extremity edema Related Data Previous Rx's Medication Instructions Recorded ketorolac 10 mg tablet 10 mg PO Q6H PRN pain #14 tabs 02/17/20 ondansetron 4 mg disintegrating 4 mg PO TID-QID PRN nausea and 02/17/20 tablet vomiting #10 tabs amoxicillin 875 mg-potassium 1 tab PO BID #20 tabs 10/06/24 clavulanate 125 mg tablet doxycycline hyclate 100 mg capsule 100 mg PO BID #20 caps 10/06/24 Allergies Allergy/AdvReac Type Severity Reaction Status Date / Time latex [LATEX] Allergy Unknown skin Verified 10/06/24 09:30 irritation morphine AdvReac Mild ITCHING Verified 10/06/24 09:30 Review of Systems Review of Systems Narrative: Pertinent positive and negative findings as per HPI Patient History Social History Smoking Status: Current every day smoker Smoking Status: Current every day smoker tobacco type: cigarettes alcohol intake frequency: 0-2 drinks per day Exam Initial Vital Signs Initial Vital Signs: Vital Signs Temperature 98.8 F 10/06/24 09:30 Pulse Rate 98 H 10/06/24 09:30 Respiratory Rate 14 10/06/24 09:30 Blood Pressure 106/65 10/06/24 09:30 Pulse Oximetry 100 10/06/24 09:30 Oxygen Delivery Method Room Air 10/06/24 09:30 General: Alert appropriate in no acute distress Respiratory: Able to speak in full sentences, no obvious respiratory distress, no wheezing no accessory muscle use. She does have rhonchi in the left mid axillary line. Abdomen: Soft, nontender nondistended Cardiac: No murmurs Skin: No obvious rashes, warm and dry Neurologic: Grossly intact no obvious asymmetries or abnormalities Psych: appropriate insight and affect, cooperative Course Vital Signs Vital signs: Vital Signs - 8 hr 10/06/24 09:30 Temperature 98.8 F Pulse Rate 98 H Respiratory Rate 14 Blood Pressure 106/65 Pulse Oximetry 100 Oxygen Delivery Method Room Air Medical Decision Making [facility] Narrative Medical decision making narrative: 38-year-old woman presents with productive cough with green sputum that is blood tinged, fevers now for 4 days, symptoms following an upper respiratory infection and it course of amoxicillin for dental infection. Based on her clinical exam she does have a left lower lobe pneumonia. I suspect that this is a post viral pneumonia and the amoxicillin was started and completed before it truly developed. There was no signs of sepsis or respiratory distress. With shared decision-making we opted to treat her clinically diagnosed left lower lobe pneumonia with antibiotics and not proceed with any additional testing or chest x-ray this time. We talked about workup that would be required if she does not improve with the antibiotics which would include blood work, chest x- ray and if she develops true hemoptysis, CT scan. There was no need for hospitalization at this time. Findings reviewed questions were answered she is safe for discharge Discharge Plan Departure Patient Disposition: Home Clinical Impression: Bacterial pneumonia Instructions: DI for Pneumonia -- Adult Activity Restrictions/Additional Instructions: Thank you for coming in today Based on your clinical exam you have a left lower lobe pneumonia. Because you did have that recent course of amoxicillin, I am going to suggest dual antibiotics including doxycycline and Augmentin. Prescriptions were sent to [facility] in [place] You are not showing signs of sepsis or respiratory distress and together we decided to do no additional testing as antibiotics are going to be indicated based on your clinical exam. With the sinus congestion, I would recommend going back to using your Neti pot. Using 400 mg of ibuprofen (2 [id number] pills) and 1 Tylenol every 6 hours can be very helpful in controlling pain. If you find that you are getting worse, you are continuing to have any blood- tinged sputum after you finish the antibiotics you do need to return to the ER for further evaluation. Prescriptions: New amoxicillin-pot clavulanate 875-125 mg tablet 1 tab PO BID Qty: 20 0RF doxycycline hyclate 100 mg capsule 100 mg PO BID Qty: 20 0RF No Action ketorolac 10 mg tablet 10 mg PO Q6H PRN (Reason: pain) Qty: 14 0RF ondansetron 4 mg tablet,disintegrating 4 mg PO TID-QID PRN (Reason: nausea and vomiting) Qty: 10 0RF Referrals: Etelvina Junior ARNP [Primary Care Provider] - Stand Alone Forms: Patient Portal/API/Survey
[2024-10-06 10:07] VITALS: BP 104/66; PULSE 100; RESP 16; O2SAT 99
== END 2024-10-06 10:08 | disposition home or self-care (01) ==
PROVIDERS: Emergency Provider Emergency Medicine; PCP Nurse Practitioner Family
DX: J18.9 Pneumonia, unspecified organism (principal); R05.9 Cough, unspecified; F17.210 Nicotine dependence, cigarettes, uncomplicated
CPT/HCPCS: 99281